=== PATIENT | female | born 1980 | race African-American/Black ===

== ENCOUNTER 2017-03-24 09:15 | Emergency (ER) | payer OTHER ==
[~2017-03-24] VITALS: Ht 160 cm; Wt 97.5 kg
[~2017-03-24 09:15] MED LIST: BUTA1CAP29 PO
[2017-03-24] MEDS ORDERED: HYDROcodone/APAP 5/325MG 1 TAB TABLET PO ONE (09:45)
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
[2017-03-24 10:00] LABS: BILIRUBIN,URINE NEGATIVE (NEG); GLUCOSE,URINE NEGATIVE (NEG); NITRITE,URINE NEGATIVE (NEG); PROTEIN,URINE NEGATIVE (NEG-TRACE); UROBILINOGEN,URINE 0.2 mg/dL (0.2 mg/dL)
[2017-03-24 10:01] LABS: BACTERIA,URINE FEW /HPF (0-FEW); SQUAMOUS EPITHELIAL CELL,UR FEW /LPF
[2017-03-24 10:05] LABS: BASO # 0.1 x10^3/uL (0.0-0.2); BASO % 1 % (0-3); EOS % 1 % (0-3); HEMATOCRIT 38.7 % (36.0-47.0); LYMPH # 1.9 x10^3/uL (1.0-4.8); LYMPH % 20 % (24-48); MEAN CORPUSCULAR HEMOGLOBIN 28 pg (25-35); MEAN CORPUSCULAR HGB CONC 34 g/dL (31-37); MEAN CORPUSCULAR VOLUME 85 fL (79-100); MONO % 6 % (0-9); NEUT % 72 % (31-73); PLATELET COUNT 328 x10^3/uL (140-400); RED BLOOD COUNT 4.57 x10^6/uL (3.50-5.40); RED CELL DISTRIBUTION WIDTH 13.4 % (11.5-14.5); WHITE BLOOD COUNT 9.9 x10^3/uL (4.0-11.0)
[2017-03-24] MEDS ORDERED: ONDANSETRON ODT 4 MG TAB.RAPDIS. ONE (10:08)
[2017-03-24] MEDS ORDERED: ONDANSETRON ODT 4 MG TAB.RAPDIS. PO ONE (10:15)
[2017-03-24 10:23] LABS: CALCIUM 8.6 mg/dL (8.5-10.1); CREATININE 0.8 mg/dL (0.6-1.0); GFR 99.4; POTASSIUM 3.4 mmol/L (3.5-5.1)
[2017-03-24 10:29] LABS: ALBUMIN 3.3 g/dL (3.4-5.0); ALBUMIN/GLOBULIN RATIO 0.8 (1.0-1.7); TOTAL BILIRUBIN 0.2 mg/dL (0.2-1.0); TOTAL PROTEIN 7.3 g/dL (6.4-8.2)
[2017-03-24] MEDS ORDERED: CONTRAST GIVEN MC PRN (10:30)
[2017-03-24] MEDS ORDERED: IOHEXOL 300 MG/ML 100ML VIAL. IV ONE (10:30)
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
[2017-03-24] MEDS ORDERED: CYCL5TAB PO (13:01)
[2017-03-24] MEDS ORDERED: HYDR-971 PO (13:01)
[2017-03-24] MEDS ORDERED: IBUP-1060 PO (13:01)
[2017-03-24 13:02] VITALS: BP 142/87
[2017-03-24] MEDS ORDERED: KETOROLAC 30 MG/ML INJ. IV ONE (13:15)
[2017-03-24] MEDS ORDERED: ONDA8TAB12 PO (13:22)
== END 2017-03-24 13:16 | disposition home or self-care (01) ==
LOC: ER 09:15
DX: S06.0X0A Concussion without loss of consciousness, initial encounter (principal); S16.1XXA Strain of muscle, fascia and tendon at neck level, initial encounter; S20.212A Contusion of left front wall of thorax, initial encounter; S30.1XXA Contusion of abdominal wall, initial encounter; M79.602 Pain in left arm; E87.6 Hypokalemia; E88.09 Other disorders of plasma-protein metabolism, not elsewhere classified; J45.909 Unspecified asthma, uncomplicated; Z87.01 Personal history of pneumonia (recurrent); Z90.49 Acquired absence of other specified parts of digestive tract; V43.52XA Car driver injured in collision with other type car in traffic accident, initial encounter; Y93.I9 Activity, other involving external motion; Y92.410 Unspecified street and highway as the place of occurrence of the external cause; Y99.8 Other external cause status
CPT/HCPCS: 36415; 70450; 71260; 72125; 74177; 80053; 81001; 81025; 85025; 96374; 99285; J1885; Q0162; Q9967

== ENCOUNTER → 2017-03-27 | Outpatient (CLI) | payer OTHER ==
[2017-03-24 13:02] VITALS: BP 142/87
[~2017-03-27] MED LIST changes: +CYCL5TAB PO; +HYDR-971 PO; +IBUP-1060 PO; +ONDA8TAB12 PO
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
== END | disposition home or self-care (01) ==
LOC: US 17:18
PROVIDERS: ATTEND Physician Assistant Surgical
DX: N20.0 Calculus of kidney (principal); K56.7 Ileus, unspecified
CPT/HCPCS: 74176

== ENCOUNTER → 2017-12-16 | Outpatient (CLI) | payer OTHER ==
--- NOTE | 2017-12-16 08:41 | RAD ---
Pelvic ultrasound History: Pelvic pain, irregular menses Comparison: None. Findings: Multiple transabdominal sonographic images of the pelvis are submitted. Uterus measured 11.2 x 3.2 x 5.4 cm. Endometrium measures 0.8 cm. Right ovary measured 2.1 x 3.6 x 1.7 cm with normal color flow and low resistance vascularity. Left ovary measured 2.3 x 3.3 x 2.3 cm with normal low resistance vascularity. No free fluid is demonstrated. Impression: 1. No significant abnormality is demonstrated. Electronically signed by: Dimitrios Schwartz MD (12/16/2017 8:39 AM) [id number]
== END | disposition home or self-care (01) ==
LOC: US 07:42
PROVIDERS: ATTEND Obstetrics & Gynecology
DX: N92.6 Irregular menstruation, unspecified (principal); I10 Essential (primary) hypertension; J45.909 Unspecified asthma, uncomplicated; E87.6 Hypokalemia; R10.2 Pelvic and perineal pain; Z90.49 Acquired absence of other specified parts of digestive tract
CPT/HCPCS: 76856

== ENCOUNTER 2020-07-05 18:01 | Emergency (ER) | payer BC, MEDICAID ==
[~2020-07-05] VITALS: Ht 162.6 cm; Wt 100.0 kg
[~2020-07-05 18:01] MED LIST changes: +HYDR-3164 PO; -HYDR-971 PO
--- NOTE | 2020-07-05 18:24 | ED.ADGEN ---
Past Medical History Past Medical History: Asthma, Bronchitis, Pneumonia Past Surgical History: Cholecystectomy, Smoking Status: Former Smoker Alcohol Use: Occasionally Drug Use: None General Adult EDM: Chief Complaint: CHEST PAIN-NON CARDIAC NATURE HPI: HPI: Patient is a 39 year old female coming in for chest pain rating to her neck and her arm. She states symptoms started suddenly last night around 8 PM when she was sitting on the couch watching TV. Patient states she has felt lightheaded and occasionally clammy and diaphoretic. Patient states recently she has been having pain in her right calf. His last night after the symptoms started she went to lay down and felt like her heart was racing but with occasional heartbeats. Denies any recent illness and states she felt well prior to symptoms starting. Has no past medical history but is currently receiving fertility treatments. Has a family history of cardiac disease, no history of blood clots. Denies any swelling of her lower extremities. Denies any tobacco or drug use, rare alcohol use and none recently. Review of Systems: Review of Systems: All other systems within normal limits except for as noted in the HPI Current Medications: Current Medications Medications (Trade) Dose Ordered Sig/Radha Start Time Stop Time Status Last Admin Dose Admin Info (CONTRAST GIVEN -- Rx MONITORING) 1 each PRN DAILY PRN 07/05/20 19:45 07/07/20 19:44 Iohexol (Omnipaque 350 Mg/ml) 100 ml 1X ONCE 07/05/20 20:00 07/05/20 20:01 DC 07/05/20 19:52 100 ML Sodium Chloride 1,000 ml @ 1,000 mls/hr 1X ONCE 07/05/20 18:30 07/05/20 19:29 DC 07/05/20 18:30 1,000 MLS/HR Allergies: Allergies: Allergies Coded Allergies Type Severity Reaction Last Updated Verified No Known Drug Allergies 07/21/13 No Physical Exam: PE: Constitutional: Well developed, well nourished, no acute distress, non-toxic appearance. [] HENT: Normocephalic, atraumatic, bilateral external ears normal, nose normal. [] Eyes: PERRLA, conjunctiva normal, no discharge. [] Neck: No rigidity, supple, no stridor. No C-spine tenderness [] Cardiovascular: Tachycardic with regular rhythm, brisk cap refill [] Lungs & Thorax: Non labored symmetric respirations, no tachypnea or respiratory distress [] Abdomen: Soft, nondistended. Skin: Warm, dry, no erythema, no rash. [] Back: Unremarkable Extremities: No deformities, range of motion grossly intact, no lower extremity edema. Right calf tenderness. [] Neurologic: Alert and oriented X 3, no focal deficits noted. [] Psychologic: Affect normal, judgement normal, mood normal. [] Current Patient Data: Labs: Laboratory Tests Test 07/05/20 18:23 White Blood Count 11.5 x10^3/uL (4.0-11.0) H Red Blood Count 4.45 x10^6/uL (3.50-5.40) Hemoglobin 10.8 g/dL (12.0-15.5) L Hematocrit 33.5 % (36.0-47.0) L Mean Corpuscular Volume 75 fL (79-100) L Mean Corpuscular Hemoglobin 24 pg (25-35) L Mean Corpuscular Hemoglobin Concent 32 g/dL (31-37) Red Cell Distribution Width 17.7 % (11.5-14.5) H Platelet Count 386 x10^3/uL (140-400) Neutrophils (%) (Auto) 68 % (31-73) Lymphocytes (%) (Auto) 23 % (24-48) L Monocytes (%) (Auto) 8 % (0-9) Eosinophils (%) (Auto) 1 % (0-3) Basophils (%) (Auto) 1 % (0-3) Neutrophils # (Auto) 7.8 x10^3/uL (1.8-7.7) H Lymphocytes # (Auto) 2.6 x10^3/uL (1.0-4.8) Monocytes # (Auto) 0.9 x10^3/uL (0.0-1.1) Eosinophils # (Auto) 0.1 x10^3/uL (0.0-0.7) Basophils # (Auto) 0.1 x10^3/uL (0.0-0.2) D-Dimer (Polina) 0.44 ug/mlFEU (0.00-0.50) Sodium Level 143 mmol/L (136-145) Potassium Level 3.7 mmol/L (3.5-5.1) Chloride Level 102 mmol/L (98-107) Carbon Dioxide Level 29 mmol/L (21-32) Anion Gap 12 (6-14) Blood Urea Nitrogen 11 mg/dL (7-20) Creatinine 0.9 mg/dL (0.6-1.0) Estimated GFR (Cockcroft-Gault) 85.2 BUN/Creatinine Ratio 12 (6-20) Glucose Level 99 mg/dL (70-99) Calcium Level 9.4 mg/dL (8.5-10.1) Magnesium Level 2.2 mg/dL (1.8-2.4) Total Bilirubin 0.2 mg/dL (0.2-1.0) Aspartate Amino Transferase (AST) 13 U/L (15-37) L Alanine Aminotransferase (ALT) 17 U/L (14-59) Alkaline Phosphatase 89 U/L (46-116) Troponin I Quantitative < 0.017 ng/mL (0.000-0.055) US-Kwd-J-Type Natriuretic Peptide 24 pg/mL (0-124) Total Protein 7.6 g/dL (6.4-8.2) Albumin 3.8 g/dL (3.4-5.0) Albumin/Globulin Ratio 1.0 (1.0-1.7) Thyroid Stimulating Hormone (TSH) 1.476 uIU/mL (0.358-3.74) Laboratory Tests 07/05/20 18:23 Laboratory Tests 07/05/20 18:23 Vital Signs: Vital Signs Date Time Temp Pulse Resp B/P (MAP) Pulse Ox O2 Delivery O2 Flow Rate FiO2 07/05/20 18:07 97.9 100 18 166/88 (114) 100 Room Air 97.9 EKG: EKG: Sinus rhythm, heart rate 100 bpm, normal axis, no ST elevation or depression, no ectopy, normal intervals. [] Heart Score: C/O Chest Pain: Yes HEART Score for Chest Pain: HEART Score for Chest Pain Response (Comments) Value History Slighlty/Non-Suspicious 0 ECG Normal 0 Age < 45 0 Risk Factors No Risk Factors 0 Troponin < Normal Limit 0 Total 0 Risk Factors: Risk Factors: DM, Current or recent (<one month) smoker, HTN, HLP, family history of CAD, obesity. Risk Scores: Score 0 - 3: 2.5% MACE over next 6 weeks - Discharge Home Score 4 - 6: 20.3% MACE over next 6 weeks - Admit for Clinical Observation Score 7 - 10: 72.7% MACE over next 6 weeks - Early Invasive Strategies Radiology/Procedures: Radiology/Procedures: CTA CHEST 07/05/2020 7:[address] angiography chest with contrast 07/05/2020 7:36 PM INDICATION: Chest pain, tachycardia COMPARISON: CT chest 03/24/2017 TECHNIQUE: Axial CT images of the chest were obtained after the intravenous administration of nonionic contrast. Coronal and sagittal reformats are provided. Maximum intensity projection images of the thoracic vasculature are provided. FINDINGS: The thyroid gland is normal in appearance. Right hilar lymph node measures 11 mm by short axis (series 3, image 62) new additional right hilar lymph node measures 10 mm (series 3, image 68). The heart size is within normal limits. No significant pericardial effusion. Thoracic aorta is normal in course and caliber. There is adequate opacification of the pulmonary arterial system. There there are no filling defects within the pulmonary arterial system to suggest acute or chronic pulmonary embolus. There are no suspicious solid noncalcified pulmonary nodules. There are no pulmonary infiltrates. There are no pleural effusions. No pulmonary vascular congestion or pneumothorax. Visualized portions of the upper abdomen are within normal limits. Gallbladder surgically absent. No suspicious osseous lesions are visualized. IMPRESSION: There is no evidence for acute or chronic pulmonary embolism. New right hilar lymphadenopathy is indeterminate and may be reactive. 3 month follow-up chest CT could be of benefit. Differential considerations would include reactive changes to underlying infection versus granulomatous disease such as sarcoidosis. [] Course & Med Decision Making: Course & Med Decision Making Pertinent Labs and Imaging studies reviewed. (See chart for details) [] Dragon Disclaimer: Dragon Disclaimer: This electronic medical record was generated, in whole or in part, using a voice recognition dictation system. Departure Departure Impression: Primary Impression: Chest pain Additional Impression: Hilar lymphadenopathy Disposition: 01 DC HOME SELF CARE/HOMELESS Condition: STABLE Referrals: YURI DAY MD (PCP) Patient Instructions: Chest Pain (Nonspecific) Additional Instructions: Speak with your primary care provider about a 3 month follow-up chest CT. Differential considerations would include reactive changes to underlying infection versus granulomatous disease such as sarcoidosis Problem Qualifiers OSCAR VARGHESE MD Jul 05, 2020 18:24
[2020-07-05 18:30] LABS: BASO # 0.1 x10^3/uL (0.0-0.2); BASO % 1 % (0-3); EOS # 0.1 x10^3/uL (0.0-0.7); EOS % 1 % (0-3); HEMATOCRIT 33.5 % (36.0-47.0); HEMOGLOBIN 10.8 g/dL (12.0-15.5); LYMPH # 2.6 x10^3/uL (1.0-4.8); LYMPH % 23 % (24-48); MEAN CORPUSCULAR HEMOGLOBIN 24 pg (25-35); MEAN CORPUSCULAR HGB CONC 32 g/dL (31-37); MEAN CORPUSCULAR VOLUME 75 fL (79-100); MONO # 0.9 x10^3/uL (0.0-1.1); MONO % 8 % (0-9); NEUT # 7.8 x10^3/uL (1.8-7.7); NEUT % 68 % (31-73); PLATELET COUNT 386 x10^3/uL (140-400); RED BLOOD COUNT 4.45 x10^6/uL (3.50-5.40); RED CELL DISTRIBUTION WIDTH 17.7 % (11.5-14.5); WHITE BLOOD COUNT 11.5 x10^3/uL (4.0-11.0)
[2020-07-05] MEDS: IV NORMAL SALINE 1000ML BAG 1,000 ML IV ONE (18:30)
[2020-07-05 18:42] LABS: CALCIUM 9.4 mg/dL (8.5-10.1); CREATININE 0.9 mg/dL (0.6-1.0); GFR 85.2; POTASSIUM 3.7 mmol/L (3.5-5.1)
[2020-07-05 18:47] LABS: ALBUMIN 3.8 g/dL (3.4-5.0); MAGNESIUM 2.2 mg/dL (1.8-2.4); TOTAL BILIRUBIN 0.2 mg/dL (0.2-1.0); TOTAL PROTEIN 7.6 g/dL (6.4-8.2)
--- NOTE | 2020-07-05 19:01 | EKG ---
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
[2020-07-05] MEDS ORDERED: CONTRAST GIVEN. MC PRN (19:45)
[2020-07-05] MEDS: IOHEXOL 350 MG/ML 100 ML VIAL. IV ONE (19:52)
--- NOTE | 2020-07-05 20:11 | RAD ---
PQRS Compliance Statement: One or more of the following individualized dose reduction techniques were utilized for this examinat ion: 1. Automated exposure control 2. Adjustment of the mA and/or kV according to patient size 3. Use of iterative reconstruction technique CTA CHEST 07/05/2020 7:[address] angiography chest with contrast 07/05/2020 7:36 PM INDICATION: Chest pain, tachycardia COMPARISON: CT chest 03/24/2017 TECHNIQUE: Axial CT images of the chest were obtained after the intravenous administration of nonioni c contrast. Coronal and sagittal reformats are provided. Maximum intensity projection images of the t horacic vasculature are provided. FINDINGS: The thyroid gland is normal in appearance. Right hilar lymph node measures 11 mm by short axis (serie s 3, image 62) new additional right hilar lymph node measures 10 mm (series 3, image 68). The heart s ize is within normal limits. No significant pericardial effusion. Thoracic aorta is normal in course and caliber. There is adequate opacification of the pulmonary arterial system. There there are no filling defects within the pulmonary arterial system to suggest acute or chronic pulmonary embolus. There are no suspicious solid noncalcified pulmonary nodules. There are no pulmonary infiltrates. The re are no pleural effusions. No pulmonary vascular congestion or pneumothorax. Visualized portions of the upper abdomen are within normal limits. Gallbladder surgically absent. No suspicious osseous lesions are visualized. IMPRESSION: There is no evidence for acute or chronic pulmonary embolism. New right hilar lymphadenopathy is indeterminate and may be reactive. 3 month follow-up chest CT coul d be of benefit. Differential considerations would include reactive changes to underlying infection v ersus granulomatous disease such as sarcoidosis. Electronically signed by: Sultana Hernandez MD (07/05/2020 8:08 PM) [facility]
[2020-07-05 20:50] VITALS: BP 155/96
== END 2020-07-05 21:05 | disposition home or self-care (01) ==
LOC: ER 18:01
DX: R07.89 Other chest pain (principal); R59.0 Localized enlarged lymph nodes; R42 Dizziness and giddiness; M79.661 Pain in right lower leg; R61 Generalized hyperhidrosis; J45.909 Unspecified asthma, uncomplicated; Z87.891 Personal history of nicotine dependence
CPT/HCPCS: 36415; 71275; 80053; 83735; 83880; 84443; 84484; 85025; 85379; 93005; 96360; 99285; J7030; Q9967

== ENCOUNTER 2020-12-20 02:08 | Emergency (ER) | payer BC, MEDICAID ==
[~2020-12-20] VITALS: Ht 160 cm; Wt 102.0 kg
[2020-12-20 03:06] VITALS: BP 151/62
--- NOTE | 2020-12-20 03:08 | PHYS DOC ---
Past Medical History Past Medical History: Asthma, Bronchitis, Pneumonia Past Surgical History: Cholecystectomy, Smoking Status: Former Smoker Alcohol Use: Occasionally Drug Use: None General Adult EDM: Chief Complaint: VAGINAL BLEEDING HPI: HPI: 40 yo female is presenting to the emergency department in first semester complaining of vaginal bleeding, denies nausea or vomiting, no fever, chills, no discharge, no urinary symptoms, Reports a special period was November 02, she is roughly 7 weeks 1 day Review of Systems: Review of Systems: General: no fevers , no chills, no general weakness Eyes: no blurred vision, no diplopia Skin: no rashes Neck: no swelling, no neck stiffness, no neck pain Heme: no bleeding, no lymph node enlargement Ear/Nose/Throat: No sore throat, no runny nose, no hearing loss, no difficulty swallowing Cardiovascular: no Chest pain, no palpitations Respiratory: No dyspnea, no cough, no hemoptysis Gastrointestinal: No abdominal pain, no nausea, no vomiting, no diarrhea, no blood in stool Genitourinary: no dysuria, no hematuria, positive for vaginal bleeding and Musculoskeletal: no back pain, no leg pain, no arm pain, no arthralgia Neurologic: no headaches, no dizziness, no focal numbness/tingling, no focal weakness Psych: no depression, no anxiety, no SI/HI *All review of systems are negative other than what is noted above Heart Score: C/O Chest Pain: No Risk Factors: Risk Factors: DM, Current or recent (<one month) smoker, HTN, HLP, family history of CAD, obesity. Risk Scores: Score 0 - 3: 2.5% MACE over next 6 weeks - Discharge Home Score 4 - 6: 20.3% MACE over next 6 weeks - Admit for Clinical Observation Score 7 - 10: 72.7% MACE over next 6 weeks - Early Invasive Strategies Allergies: Allergies: Allergies Coded Allergies Type Severity Reaction Last Updated Verified No Known Drug Allergies 07/21/13 No Physical Exam: PE: Gen-well appearing, no acute distress Head: Normocephalic/Atraumatic ENT: atraumatic, PERRLA, EOMI, oropharynx clear Neck: supple, full ROM/strength, no JVD, no nuchal rigidity Lungs: no distress, speaks in full sentences, Clear to auscultation bilaterally CV: reg rate, rhythm, no murmus/rubs/gallops, peripheral pulses equal in all extremities Abdomen: soft/nontender, no guarding/rebound tenderness, no rigidity, non distended, normoactive bowel sounds Musculoskeletal: full ROM/strength in all extremities, atraumatic, no swelling Back: full range of motion/strength Skin: intact, no rashes Lymph: no gross SUMMER Neuro: alert and oriented x 4, CN 2-12 grossly intact, Motor strength is 5/5 in all extremities, no focal sensory deficits, no focal ataxia, ambulatory with steady gait Psych: normal mood/affect EKG: EKG: [] Radiology/Procedures: Radiology/Procedures: [] Course & Med Decision Making: Course & Med Decision Making Pertinent Labs and Imaging studies reviewed. (See chart for details) [] Patient presented to the emergency department with first trimester bleeding, concern for threatened versus incomplete miscarriage, unlikely ectopic, plan for labs, beta hCG quantitative level, urinalysis and a transvaginal ultrasound, the patient is noted to be blood type a positive, we will not need to give RhoGam Reevaluation 4:06 AM: The ultrasound shows a normal intrauterine with a heart rate of 126 bpm, beta-hCG levels 28,000, believe she stable for discharge for close obstetrical follow-up Patient was seen in the ED for first trimester bleeding in , ultrasound consistent with what appears to be a viable intrauterine , there is no apparent evidence of any emergency medical pathology at this time, I advised her to follow-up with her supervisor industrial arts education at in the next 24 hours, and to return to the ED before then if any new or worsening / concerning symptoms had developed. All questions and concerns were addressed at time of disposition Evan Disclaimer: Evan Disclaimer: This electronic medical record was generated, in whole or in part, using a voice recognition dictation system. Departure Departure Impression: Primary Impression: Vaginal bleeding during Disposition: HOME / SELF CARE / HOMELESS Condition: IMPROVED Referrals: NO PCP (PCP) Patient Instructions: Vaginal Bleeding During , First Trimester Additional Instructions: The ultrasound shows a normal-appearing intrauterine at around 6 weeks and 5 days, the beta-hCG level is around 28,000, I believe this is a viable , I do recommend a follow-up with your supervisor industrial arts education at in the next 24 to 48 hours, return to the nearest emergency room before then if any new or worsening/concerning symptoms develop NIA DAVEY MD Dec 20, 2020 03:08
[2020-12-20 03:21] LABS: BASO # 0.1 x10^3/uL (0.0-0.2); BASO % 1 % (0-3); EOS # 0.1 x10^3/uL (0.0-0.7); EOS % 1 % (0-3); HEMATOCRIT 34.9 % (36.0-47.0); HEMOGLOBIN 11.9 g/dL (12.0-15.5); LYMPH # 2.2 x10^3/uL (1.0-4.8); LYMPH % 14 % (24-48); MEAN CORPUSCULAR HEMOGLOBIN 26 pg (25-35); MEAN CORPUSCULAR HGB CONC 34 g/dL (31-37); MEAN CORPUSCULAR VOLUME 77 fL (79-100); MONO # 1.3 x10^3/uL (0.0-1.1); MONO % 8 % (0-9); NEUT # 11.8 x10^3/uL (1.8-7.7); NEUT % 76 % (31-73); PLATELET COUNT 271 x10^3/uL (140-400); RED BLOOD COUNT 4.53 x10^6/uL (3.50-5.40); WHITE BLOOD COUNT 15.5 x10^3/uL (4.0-11.0)
[2020-12-20 03:33] LABS: CALCIUM 9.9 mg/dL (8.5-10.1); CREATININE 0.8 mg/dL (0.6-1.0); GFR 97.1; POTASSIUM 3.7 mmol/L (3.5-5.1)
[2020-12-20 03:39] LABS: ALBUMIN 3.5 g/dL (3.4-5.0); ALBUMIN/GLOBULIN RATIO 0.9 (1.0-1.7); TOTAL BILIRUBIN 0.1 mg/dL (0.2-1.0); TOTAL PROTEIN 7.4 g/dL (6.4-8.2)
--- NOTE | 2020-12-20 04:56 | RAD ---
US PELVIS COMPLETE Clinical Indication: Reason: vaginal bleeding, Comparison: None. TECHNIQUE: Real-time ultrasound imaging of the pelvis using transvaginal window is performed. Findings: The right maternal ovary is normal. The left maternal ovary is not visualized perhaps due to overlyin g bowel gas. No cul-de-sac free fluid is identified. Anteverted uterus measures 9.3 x 7.4 x 6.5 cm. Intrauterine gestational sac, shape is angular. No perigestational hemorrhage is identified. Internal ly a pole and yolk sac are identified. [place]-rump length 0.6 cm, 6 weeks and 3 days. [place] ultrasound is August 12, 2021. Estimated heart rate 127 bpm. IMPRESSION: 1. Single live intrauterine gestation, estimated sonographic gestational age 6 weeks and 3 days. 2. The gestational sac has abnormal shape. Electronically signed by: Rashawn Reeves MD (12/20/2020 4:54 AM) [facility]
== END 2020-12-20 04:45 | disposition home or self-care (01) ==
LOC: ER 02:08
DX: O46.91 Antepartum hemorrhage, unspecified, first trimester (principal); O9A.511 Psychological abuse complicating pregnancy, first trimester; J45.909 Unspecified asthma, uncomplicated; Z3A.01 Less than 8 weeks gestation of pregnancy
CPT/HCPCS: 36415; 76856; 80053; 84702; 85025; 99284